=== PATIENT | female | born 1990 ===

== ENCOUNTER 2023-04-23 19:37 | Emergency (ER) | payer SELFPAY ==
[2023-04-23 20:32] LABS: Specific Gravity 1.009 (1.005-1.030); Urine Bacteria None Seen /HPF (<20); Urine Bilirubin NEGATIVE (Negative); Urine Blood 3+ (OVER) (Negative); Urine Clarity Extremely Turbid (Clear); Urine Color Colorless (Yellow); Urine Glucose NEGATIVE (Negative); Urine Protein NEGATIVE (Negative); Urine RBC >50 /HPF (None Seen); Urine Urobilinogen Normal (Normal); Urine pH 6.5 (5.0-7.0)
[2023-04-23 20:48] LABS: Specific Gravity 1.021 (1.005-1.030)
[2023-04-23 20:54] LABS: Absolute Lymphocytes (CBC) 2.1 K/uL (0.7-4.9); Hematocrit 36.5 % (36.0-45.0); Lymphocytes % 28.1 % (15.3-44.8); MPV 8.3 fL (7.6-11.3); Platelets 251 thou/uL (152-406); RBC Red Blood Cell Count 4.05 M/uL (3.86-4.86)
[2023-04-23 21:50] LABS: Potassium 3.8 mEq/L (3.5-5.1)
--- NOTE | 2023-04-23 22:24 | EDPHYS ---
Physician Documentation [facility] Name: Estephania Beal Age: 33 yrs Sex: Female : 1990 Arrival Date: 04/23/2023 Time: 19:37 Bed 19 Private MD: ED Physician Esau Gómez HPI: 04/23 20:33 This 33 yrs old Female presents to ER via Ambulatory with complaints of Vaginal snw Bleeding, + Preg <12wks. 20:33 The patient presents with vaginal bleeding that is with clots. Onset: The snw symptoms/episode began/occurred acutely. Associated signs and symptoms: The patient has no apparent associated signs or symptoms. Severity of symptoms: At their worst the symptoms were mild, moderate. The patient has experienced a previous episode. The patient has not recently seen a physician. awaiting medicaid. 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 - Social history:: Smoking status: Patient denies any tobacco usage or history of. ROS: 20:32 Constitutional: Negative for fever, chills, and weight loss, Eyes: Negative for injury, snw pain, redness, and discharge, ENT: Negative for injury, pain, and discharge, Neck: Negative for injury, pain, and swelling, Cardiovascular: Negative for chest pain, palpitations, and edema, Respiratory: Negative for shortness of breath, cough, wheezing, and pleuritic chest pain, Abdomen/GI: Negative for abdominal pain, nausea, vomiting, diarrhea, and constipation, Back: Negative for injury and pain, : Negative for injury, discharge, and swelling, positive for bleeding MS/Extremity: Negative for injury and deformity, Skin: Negative for injury, rash, and discoloration, Neuro: Negative for headache, weakness, numbness, tingling, and seizure, Psych: Negative for depression, anxiety, suicide ideation, homicidal ideation, and hallucinations. Exam: 20:32 Constitutional: This is a well developed, well nourished patient who is awake, alert, snw and in no acute distress. Head/Face: Normocephalic, atraumatic. Eyes: Pupils equal round and reactive to light, extra-ocular motions intact. Lids and lashes normal. Conjunctiva and sclera are non-icteric and not injected. Cornea within normal limits. Periorbital areas with no swelling, redness, or edema. ENT: Nares patent. No nasal discharge, no septal abnormalities noted. Tympanic membranes are normal and external auditory canals are clear. Oropharynx with no redness, swelling, or masses, exudates, or evidence of obstruction, uvula midline. Mucous membranes moist. Neck: Trachea midline, no thyromegaly or masses palpated, and no cervical lymphadenopathy. Supple, full range of motion without nuchal rigidity, or vertebral point tenderness. No Meningismus. Chest/axilla: Normal chest wall appearance and motion. Nontender with no deformity. No lesions are appreciated. Cardiovascular: Regular rate and rhythm with a normal S1 and S2. No gallops, murmurs, or rubs. Normal PMI, no JVD. No pulse deficits. Respiratory: Lungs have equal breath sounds bilaterally, clear to auscultation and percussion. No rales, rhonchi or wheezes noted. No increased work of breathing, no retractions or nasal flaring. Abdomen/GI: Soft, non-tender, with normal bowel sounds. No distension or tympany. No guarding or rebound. No evidence of tenderness throughout. Back: No spinal tenderness. No costovertebral tenderness. Full range of motion. Skin: Warm, dry with normal turgor. Normal color with no rashes, no lesions, and no evidence of cellulitis. MS/ Extremity: Pulses equal, no cyanosis. Neurovascular intact. Full, normal range of motion. Neuro: Awake and alert, GCS 15, oriented to person, place, time, and situation. Cranial nerves II-XII grossly intact. Motor strength 5/5 in all extremities. Sensory grossly intact. Cerebellar exam normal. Normal gait. Psych: Awake, alert, with orientation to person, place and time. Behavior, mood, and affect are within normal limits. Vital Signs: 19:46 BP 136 / 72; Pulse 82; Resp 17; Temp 98.1; Pulse Ox 97% ; Weight 85.73 kg; Pain 3/10; ap3 20:26 BP 124 / 66; Pulse 92; Resp 17; Pulse Ox 97% on R/A; cm10 21:36 BP 114 / 71; Pulse 74; Resp 16; Pulse Ox 99% on R/A; me1 22:29 BP 116 / 67; Pulse 69; Resp 17; Pulse Ox 96% on R/A; me1 23:12 BP 111 / 61; Pulse 80; Resp 17; Pulse Ox 96% on R/A; me1 19:46 Pain Scale: Adult ap3 MDM: 19:57 Patient medically screened. snw 22:52 Differential diagnosis: dysfunctional uterine bleeding, ectopic , nonspecific snw abdominal pain, urinary tract infection. Data reviewed: vital signs, nurses notes. Counseling: I had a detailed discussion with the patient and/or guardian regarding the historical points, exam findings, and any diagnostic results supporting the discharge/admit diagnosis, lab results, the need for outpatient follow up, for definitive care, an OB/Gyne specialist, to return to the emergency department if symptoms worsen or persist or if there are any questions or concerns that arise at home. Special discussion: Based on the history and exam findings, there is no indication for further emergent testing or inpatient evaluation. I discussed with the patient/guardian the need to see the OB Gyne specialist for further evaluation of the symptoms. 04/23 19:58 Order name: Abo/rh Typing; Complete Time: 21:22 snw 04/23 19:58 Order name: Basic Metabolic Panel; Complete Time: 21:50 snw 04/23 19:58 Order name: CBC with Diff; Complete Time: 20:59 snw 04/23 19:58 Order name: Test, Urine; Complete Time: 20:51 snw 04/23 19:58 Order name: Quantitative Hcg; Complete Time: 21:50 snw 04/23 19:58 Order name: Urinalysis w/ reflexes; Complete Time: 20:43 snw 04/23 19:58 Order name: IV Saline Lock; Complete Time: 20:37 snw 04/23 19:58 Order name: Labs collected and sent; Complete Time: 20:37 snw 04/23 19:58 Order name: NPO; Complete Time: 20:20 snw Administered Medications: No medications were administered Disposition: 04/24 01:29 Co-signature as Attending Physician, Esau Gómez DO I was immediately available on-site ms3 in the Emergency Department for consultation in the care of the patient. Disposition Summary: 04/23/23 22:23 Discharge Ordered Location: Home snw Condition: Stable snw Diagnosis - Threatened snw Followup: snw - With: Private Physician - When: 2 - 3 days - Reason: Recheck today's complaints, Continuance of care, Re-evaluation by your physician Followup: snw - With: Emergency Department - When: As needed - Reason: 3 days for repeat qHCG Discharge Instructions: - Discharge Summary Sheet snw - Care snw - Threatened Miscarriage snw - Vaginal Bleeding During , First Trimester snw Forms: - Medication Reconciliation Form snw - Thank You Letter snw - Antibiotic Education snw - Prescription Opioid Use snw - Patient Portal Instructions snw - Leadership Thank You Letter snw Signatures: Dispatcher [employer] Jaida Krishnan, PIECE DYER-C PIECE DYER-Csnw Nuvia Thomas, RN RN ap3 Esau Gómez DO DO ms3
--- NOTE | 2023-04-23 22:24 | ER ---
Nurse's Notes [facility] Name: Estephania Beal Age: 33 yrs Sex: Female : 1990 Arrival Date: 04/23/2023 Time: 19:37 Bed 19 Private MD: Diagnosis: Threatened Presentation: 04/23 19:46 Chief complaint: Patient states: she started having vaginal bleeding Monday04/21/23. ap3 patient reports her last LMP was 02/18/23. Coronavirus screen: At this time, the client does not indicate any symptoms associated with coronavirus-19. Ebola Screen: No symptoms or risks identified at this time. Initial Sepsis Screen: Does the patient meet any 2 criteria? No. Patient's initial sepsis screen is negative. Does the patient have a suspected source of infection? No. Patient's initial sepsis screen is negative. Risk Assessment: Do you want to hurt yourself or someone else? Patient reports no desire to harm self or others. Onset of symptoms was April 20, 2023. 19:46 Method Of Arrival: Ambulatory ap3 19:46 Acuity: CHRISTIE 3 ap3 Triage Assessment: 19:48 General: Appears in no apparent distress. Behavior is calm, cooperative. Pain: ap3 Complains of pain in suprapubic area and left lower quadrant Pain currently is 3 out of 10 on a pain scale. Quality of pain is described as crampy, Pain began 2-3 days ago. Neuro: Level of Consciousness is awake, alert, obeys commands, Oriented to person, place, time, situation. Cardiovascular: Patient's skin is warm and dry. Respiratory: Airway is patent Respiratory effort is even, unlabored, Respiratory pattern is regular, symmetrical. : Reports vaginal bleeding that is. 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 - Social history:: Smoking status: Patient denies any tobacco usage or history of. Screenin:48 [facility] Fall Risk Assessment (Adult) History of falling in the last 3 months, ap3 including since admission No falls in past 3 months (0 pts). Abuse screen: Denies threats or abuse. Nutritional screening: No deficits noted. Tuberculosis screening: No symptoms or risk factors identified. Assessment: 20:23 General: Appears comfortable, well groomed, well developed, well nourished, Behavior is cm10 cooperative, appropriate for age, crying, quiet, Reports vaginal bleeding that started on Monday and worsened today. States she is - LMP 02/18/23. Pain: Denies pain. Neuro: Level of Consciousness is awake, alert, obeys commands, Oriented to person, place, time, situation, Appropriate for age. Cardiovascular: Capillary refill < 3 seconds Patient's skin is warm and dry. Respiratory: Airway is patent Respiratory effort is even, unlabored, Respiratory pattern is regular, symmetrical. : Denies burning with urination, pain. 20:23 : Denies. cm10 22:00 Reassessment: Patient appears in no apparent distress at this time. No changes from me1 previously documented assessment. Patient and/or family updated on plan of care and expected duration. Pain level reassessed. 23:13 Reassessment: Patient appears in no apparent distress at this time. No changes from me1 previously documented assessment. Patient and/or family updated on plan of care and expected duration. Pain level reassessed. Vital Signs: 19:46 BP 136 / 72; Pulse 82; Resp 17; Temp 98.1; Pulse Ox 97% ; Weight 85.73 kg; Pain 3/10; ap3 20:26 BP 124 / 66; Pulse 92; Resp 17; Pulse Ox 97% on R/A; cm10 21:36 BP 114 / 71; Pulse 74; Resp 16; Pulse Ox 99% on R/A; me1 22:29 BP 116 / 67; Pulse 69; Resp 17; Pulse Ox 96% on R/A; me1 23:12 BP 111 / 61; Pulse 80; Resp 17; Pulse Ox 96% on R/A; me1 19:46 Pain Scale: Adult ap3 ED Course: 19:38 Patient arrived in ED. ag3 19:40 Ja[facility] West [facility]C [facility] snw 19:40 Gómez, Esau, DO is Attending Physician. snw 19:47 Triage completed. ap3 19:48 Arm band placed on right wrist. ap3 20:03 Margot Morales, RN is Primary Nurse. cm10 20:19 Test, Urine Sent. cm10 20:19 Urinalysis w/ reflexes Sent. cm10 20:19 Quantitative Hcg Sent. cm10 20:26 Patient has correct armband on for positive identification. Bed in low position. Call cm10 light in reach. Side rails up X 1. Provided Education on: POC. Verbalized understanding. . 20:26 No provider procedures requiring assistance completed. cm10 20:37 Inserted saline lock: 20 gauge in left antecubital area, using aseptic technique. Blood as6 collected. 22:29 Deb Fish, RN is Primary Nurse. me1 23:13 IV discontinued, intact, bleeding controlled, No redness/swelling at site. Pressure me1 dressing applied. Administered Medications: No medications were administered Medication: 20:26 VIS not applicable for this client. cm10 Outcome: 22:23 Discharge ordered by . snw 23:13 Patient left the ED. me1 Signatures: Jaida West, STEEPLECHASE JOCKEY-C STEEPLECHASE JOCKEY-Csnw Nuvia Thomas, RN RN ap3 Belgica Hutchison 3 Kalia Salomon, NEIL TREJO as6 Margot Morales, RN RN cm10 Deb Fish, NEIL RN me1
[2023-04-24 00:54] VITALS: TEMP 98.1
[2023-04-24 01:07] VITALS: O2SAT 96
[2023-04-24 01:08] VITALS: BP 111/61
== END 2023-04-23 23:13 | disposition home or self-care (01) ==
LOC: ER 19:37
DX: O20.0 Threatened abortion (principal)
CPT/HCPCS: 36415; 80048; 81001; 81025; 84702; 85025; 86900; 86901; 99283